=== PATIENT | female | born 1950 | race Two or more races ===

== ENCOUNTER 2024-08-28 21:22 | Emergency (ER) | payer OTHER ==
[~2024-08-28] VITALS: Ht 165.1 cm; Wt 72.6 kg
[2024-08-28] MEDS ORDERED: TENORMIN25 MG PO (21:27)
[2024-08-28] MEDS ORDERED: COZAAR100 MG PO (21:27)
[2024-08-28] MEDS ORDERED: OZEMPIC0.25 MG/02 SQ (21:28)
[2024-08-28] MEDS ORDERED: EZALLOR SPRINKLE5 MG PO (21:28)
[2024-08-28] MEDS ORDERED: HYDRODIURIL12.5 MG (21:28)
[2024-08-28] MEDS ORDERED: ORPHENADRINE CITRATE 30 MG/ML AMPUL IM STA (22:58)
== END 2024-08-28 22:44 | disposition home or self-care (01) ==
LOC: ER 21:24
DX: M25.531 Pain in right wrist (principal); M25.511 Pain in right shoulder; M79.601 Pain in right arm; W18.39XA Other fall on same level, initial encounter; Y93.89 Activity, other specified; Y92.89 Other specified places as the place of occurrence of the external cause
CPT/HCPCS: 73030; 73060; 73070; 73110; 96365; 99283; J2360